=== PATIENT | male | born 2005 | race Caucasian/White ===

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

== ENCOUNTER 2024-03-31 20:17 | Emergency (ER) | payer MEDICAID, SELFPAY ==
--- NOTE | 2024-03-31 | ECG_ITS ---
Test Reason : CHEST PAIN/ANXIETY Blood Pressure : / mmHG Vent. Rate : 059 BPM Atrial Rate : 059 BPM P-R Int : 136 ms QRS Dur : 104 ms QT Int : 420 ms P-R-T Axes : 050 046 030 degrees QTc Int : 415 ms Sinus bradycardia Incomplete right bundle branch block Borderline ECG No previous ECGs available Referred By: Generic ED Physician Electronically Signed By:ARACELI TERRY
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
--- NOTE | ~2024-03-31 | XR_ITS ---
EXAMINATION: XR CHEST CLINICAL INFORMATION: Chest pain, anxiety COMPARISON: None available. TECHNIQUE: Frontal view of the chest was obtained. FINDINGS: No significant abnormality is noted involving the heart, lungs, mediastinum, bony thorax or soft tissues. XR/XR chest 1V IMPRESSION: Unremarkable examination. Electronically signed by: Dandy Taylor DO 03/31/2024 11:05 PM EDT
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
[2024-03-31 20:43] VITALS: BP 127/67; BP 134/76; PULSE 101; PULSE 70; RESP 18; TEMP 36.3; O2SAT 99; BMI 21.0
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
[2024-03-31] MEDS: Acetaminophen 325 MG TABLET 975 MG PO (22:06)
[2024-03-31 23:16] VITALS: BP 127/67; PULSE 70; RESP 18; TEMP 36.3; O2SAT 99
== END 2024-03-31 23:16 | disposition home or self-care (01) ==
PROVIDERS: Emergency Provider Emergency Medicine Emergency Medical Services
DX: S16.1XXA Strain of muscle, fascia and tendon at neck level, initial encounter (principal); S06.0X0A Concussion without loss of consciousness, initial encounter; V43.52XA Car driver injured in collision with other type car in traffic accident, initial encounter; Y93.89 Activity, other specified; Y92.410 Unspecified street and highway as the place of occurrence of the external cause; Y99.9 Unspecified external cause status
CPT/HCPCS: 70450; 71045; 72125; 93005; 99283

== ENCOUNTER 2024-04-10 07:12 | Emergency (ER) | payer OTHER, MEDICAID, SELFPAY ==
[2024-04-10 07:14] VITALS: BP 107/60; PULSE 78; RESP 18; TEMP 36.6; O2SAT 98; BMI 20.3
--- NOTE | 2024-04-10 07:40 | ED.WOUNDLAC ---
HPI - Wound/Laceration General Chief Complaint: Wound/Laceration Stated Complaint: Finger lac Time Seen by Provider: 04/10/24 07:23 Source: patient, RN notes reviewed and old records reviewed Mode of arrival: ambulatory History of Present Illness ED Provider: Sveta Freitas PA-C HPI narrative: 19-year-old male no significant past medical history presenting to the ED complaining of laceration to right 2nd and 3rd digits s/p mopping at work and accidentally hitting hand on metal sifuentes basket. Tetanus up-to-date. Denies injury to other area or suspected foreign body Related Data Previous Rx's ?Medication ?Instructions ?Recorded ibuprofen 400 mg tablet 400 mg PO Q8H PRN pain #20 tabs 06/11/22 cyclobenzaprine 10 mg tablet 10 mg PO BEDTIME PRN muscle spasm 01/28/23 #7 tabs ketorolac 10 mg tablet 10 mg PO TID PRN pain 5 days #15 01/28/23 tabs lidocaine 5 % topical patch 1 patch topical DAILY PRN pain #15 01/28/23 ea ondansetron 4 mg disintegrating 4 mg PO Q8H 3 days #9 tabs 07/12/23 tablet hydrocortisone acetate 25 mg 25 mg [place] BID #12 ea 12/31/23 rectal suppository (Anusol-HC) bacitracin 500 unit/gram topical 1 appl topical BID #30 grams 04/10/24 ointment Allergies Allergy/AdvReac Type Severity Reaction Status Date / Time No Known Allergies Allergy Verified 04/10/24 07:14 Review of Systems Review of Systems: Yes all other systems are reviewed and are negative Constitutional: Constitutional: Reports as per [facility] Past Medical History Attestation statement: The following information was validated with the patient. Source: old records reviewed Social History Social History Advance Directives: No Advance Directives Information Provided: No Physical Exam Vital Signs: Vital Signs: Last Vital Signs Temp 97.8 F 04/10/24 08:15 Pulse 78 04/10/24 08:15 Resp 18 04/10/24 08:15 BP 107/60 04/10/24 08:15 Pulse Ox 98 04/10/24 08:15 O2 Del Method Room Air 04/10/24 08:15 BMI result Body Mass Index 20.3 Const: General: cooperative, healthy appearing and no acute distress Orientation/consciousness: patient oriented x3 Limitations: no limitations HEENT: Head: Yes normal to inspection and Yes atraumatic Ears: hearing grossly normal bilaterally General nose exam: Normal external nose present Face and sinus: Yes normal facial exam Eyes: General: appearance normal, both eyes and all related structures EOM: EOMs intact bilaterally Neck: Neck: Yes normal visual inspection and Yes no meningeal signs Resp: Effort & Inspection: normal respiratory effort and no respiratory distress Cardio: Rate: regular rate Skin: Other: 0.5cm superficial laceration noted to right 3rd MCP 1cm superficial laceration noted to right 2nd MCP Finger to thumb opposition intact. Full range of motion intact to all digits. Underlying structures intact. Bleeding controlled Rashes: no rashes Neuro: General: patient oriented x3, tone normal and no meningeal signs Cranial nerves: Yes CN's II-XII intact bilaterally Gait exam (Neuro): Normal gait present Extrem: General: Yes normal to inspection Course Course Course Narrative: Total of 3 sutures placed Results discussed with patient including worrisome signs and symptoms and strict return precautions, and when to return to the emergency department. They verbalized understanding and feel safe for discharge at this time. Medications Administered Discontinued Medications Generic Name Dose Route Start Last Admin Trade Name Sumaya PRN Reason Stop Dose Admin Lidocaine HCl 1 appl 04/10/24 07:30 04/10/24 08:08 Lidocaine 4 % Cream Kit TOPICAL 04/10/24 07:31 1 appl ONCE ONE Administration Protocol Lidocaine HCl 5 ml 04/10/24 07:30 04/10/24 08:08 Lidocaine Hcl 1 % Mpf 5 Ml Vial EPIDURAL 04/10/24 07:31 5 ml ONCE ONE Administration Medical Decision Making Medical Decision Making [facility] Narrative: 19-year-old male no significant past medical history presenting to the ED complaining of laceration to right 2nd and 3rd digits s/p mopping at work and accidentally hitting hand on metal sifuentes basket. On exam vital signs stable, NAD, physical exam as noted above. Superficial lacerations needing suture repair. Low suspicion for fracture retained foreign body. Plan: Wound repair Please refer to course for remaining clinical decision making, interpretation of labs/imaging results, and discussions with consultants and/or family members. Differential Diagnosis Differential Diagnoses: The differential diagnosis associated with the presentation includes As above External Record Review External record reviewed: Inpatient record, Office record, Outpatient record, Prior outpatient labs, Prior outpatient radiology, Primary care record and Outside ED record Tests considered The following testing was considered but not selected: As above Prescription Management I considered prescription management with: Pain Medication Procedures Laceration Laceration 1: Site: hand Side (If applicable): right Size (cm): 0.5 Description: linear Depth: simple, single layer Local Anesthetic: lidocaine 1% Amount of anesthesia used (mL): 0.3 Pre-repair: wound explored Skin layer closed with: nylon Size (cm): 5-0 Number of sutures: 1 Technique: simple, interrupted Laceration 2: Site: hand Side (If applicable): right Size (cm): 1 Description: linear Depth: simple, single layer Local Anesthetic: lidocaine 1% Amount of anesthesia used (mL): 0.5 Pre-repair: wound explored Skin layer closed with: nylon Size (cm): 5-0 Number of sutures: 2 Technique: simple, interrupted Discharge Plan Discharge Clinical Impression: Laceration Patient Disposition: Home, Self-Care Instructions: Laceration (DC) Additional Instructions: Your wounds were repaired today in the emergency department. Keep dry and clean. You need to return to any emergency department, urgent care, or your PCPs office in 7-10 days for suture removal Apply bacitracin and or Neosporin daily Once sutures are removed apply anti scar cream like Mederma If area begins look infected, is red, there is drainage, streaking, or you have fever please return to the emergency department Prescriptions: New bacitracin 500 unit/gram ointment 1 appl topical BID Qty: 30 0RF No Action ibuprofen 400 mg tablet 400 mg PO Q8H PRN (Reason: pain) Qty: 20 0RF cyclobenzaprine 10 mg tablet 10 mg PO BEDTIME PRN (Reason: muscle spasm) Qty: 7 0RF ketorolac 10 mg tablet 10 mg PO TID PRN (Reason: pain) 5 Days Qty: 15 0RF lidocaine 5 % adhesive patch,medicated 1 patch topical DAILY PRN (Reason: pain) Qty: 15 0RF Rx Instructions: leave on most painful area for up to 12 hrs hydrocortisone acetate [Anusol-HC] 25 mg suppository 25 mg [place] BID Qty: 12 0RF ondansetron 4 mg tablet,disintegrating 4 mg PO Q8H 3 Days Qty: 9 0RF Referrals: Physician,None [Primary Care Provider] - 1 week (7-10 days for suture removal) Stand Alone Forms: Work/School Release Interventions: ED Discharge Assessment Last Done: 04/10/24 08:15 Discharge Date/Time: 04/10/24 08:15 Print Language: Cypriot
[2024-04-10] MEDS: Lidocaine 4 % Cream KIT 1 APPL TOPICAL (08:08)
[2024-04-10] MEDS: Lidocaine HCl 1 % MPF 5 ML VIAL EPIDURAL (08:08)
[2024-04-10 08:15] VITALS: BP 107/60; PULSE 78; RESP 18; TEMP 36.6; O2SAT 98
== END 2024-04-10 08:15 | disposition home or self-care (01) ==
PROVIDERS: Emergency Provider Emergency Medicine
DX: S61.210A Laceration without foreign body of right index finger without damage to nail, initial encounter (principal); S61.212A Laceration without foreign body of right middle finger without damage to nail, initial encounter; W22.8XXA Striking against or struck by other objects, initial encounter; Y93.89 Activity, other specified; Y92.89 Other specified places as the place of occurrence of the external cause; Y99.0 Civilian activity done for income or pay
CPT/HCPCS: 12001; 99282; 99284

== ENCOUNTER 2024-10-04 10:53 | Emergency (ER) | payer OTHER, SELFPAY ==
--- NOTE | 2024-10-04 11:00 | ED.URI ---
HPI - URI/Sore Throat General Chief Complaint: Upper Respiratory Symptoms Stated Complaint: Throat Pain, Coughing Time Seen by Provider: 10/04/24 11:07 Source: patient Mode of arrival: ambulatory Limitations: no limitations History of Present Illness ED Provider: CIRO HSIEH Narrative: 19 yo male otherwise healthy here with c/o dry cough, sore throat for 2 days mild chills. He has no n/v/d. He has no known sick contacts and no travel. It hurts to swallow. MD elicited complaint: cough and sore throat Onset (ago): day(s) (2) Consistency: constant Severity: moderate Description of mucous: clear Able to tolerate fluids by mouth: Yes Exacerbating factors: swallowing Relieving factors: nothing Associated symptoms: chills, sore throat and cough Treatments prior to arrival: none Related Data Previous Rx's ?Medication ?Instructions ?Recorded ibuprofen 400 mg tablet 400 mg PO Q8H PRN pain #20 tabs 06/11/22 cyclobenzaprine 10 mg tablet 10 mg PO BEDTIME PRN muscle spasm 01/28/23 #7 tabs ketorolac 10 mg tablet 10 mg PO TID PRN pain 5 days #15 01/28/23 tabs lidocaine 5 % topical patch 1 patch topical DAILY PRN pain #15 01/28/23 ea ondansetron 4 mg disintegrating 4 mg PO Q8H 3 days #9 tabs 07/12/23 tablet hydrocortisone acetate 25 mg 25 mg [place] BID #12 ea 12/31/23 rectal suppository (Anusol-HC) bacitracin 500 unit/gram topical 1 appl topical BID #30 grams 04/10/24 ointment oseltamivir 75 mg capsule (Tamiflu) 75 mg PO BID 5 days #10 caps 10/04/24 Allergies Allergy/AdvReac Type Severity Reaction Status Date / Time No Known Allergies Allergy Verified 10/04/24 11:03 Review of Systems Review of Systems: Constitutional : No Fever, No Chills, No Fatigue ENT/Mouth : pos sore throat, No Rhinorrhea Eyes: No Eye Pain, No Swelling, No Redness Cardiovascular : No Chest Pain, No SOB, No Dyspnea on Exertion Respiratory : pos Cough, No Sputum Gastrointestinal : No Nausea, No Vomiting, No Diarrhea, No abdominal Pain Genitourinary : No Dysuria, No Urinary Frequency, No Hematuria, Musculoskeletal : No joint pain, No Myalgias, No Joint Swelling Skin : No Skin Lesions, No rash Neuro : No Weakness, No Numbness, No Dizziness, no Headache All other systems reviewed and are negative [facility] Past Medical History Attestation statement: The following information was validated with the patient. Source: old records reviewed Medical History (Updated 10/04/24 @ 12:55 by Teresa Rinaldi DO) No pertinent past medical history Social History Social History (Updated 10/04/24 @ 11:28 by Teresa Rinaldi DO) Patient Tobacco Use Status: Never used Tobacco Do you have a plan to hurt others: No Plan Physical Exam Vital Signs: Vital Signs: Last Vital Signs Temp 98 F 10/04/24 11:02 Pulse 91 10/04/24 11:02 Resp 19 10/04/24 11:02 BP 113/73 10/04/24 11:02 Pulse Ox 99 10/04/24 11:02 O2 Del Method Room Air 10/04/24 11:02 BMI result Body Mass Index 21.0 Appearance: Alert. Oriented X3. No acute distress. Eyes: Pupils equal, round and reactive to light. ENT: Pharynx mild erythema no exudates uvula midline Neck: Normal inspection. Neck supple. CVS: Normal heart rate and rhythm. Pulses normal. Respiratory: No respiratory distress. Breath sounds normal. Abdomen: Soft and nontender. Skin: Skin warm and dry. Normal skin color. Normal skin turgor. Extremities: No lower extremity edema. No calf ttp Neuro: Oriented X 3. No motor deficit. No sensory deficit. 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 Overall well appearing Differential Diagnosis Differential Diagnoses: The differential diagnosis associated with the presentation includes viral syndrome, clear lungs doubt pneumonia, not toxic no signs of BILLING CUST[employer]ER SERVICE REPRESENTATIVE or retropharyngeal abscess Admission/Observation Consideration of admission/observation: Escalation of care including admission/observation considered not toxic stable for DC Lab Data [facility] Lab Attestation statement: I reviewed the patient's lab results. Labs: Lab Results 10/04/24 Range/Units 11:51 Influenza Type A (PCR) POSITIVE A (Negative) Influenza Type B (PCR) NEGATIVE (Negative) RSV RNA Qual (PCR) NEGATIVE (Negative) SARS-CoV-2 RNA (RT-PCR) NEGATIVE (Negative) S. pyogenes GrpA RADHA Negative (Negative) Prescription Management I considered prescription management with: Other Discharge Plan Discharge Clinical Impression: Viral infection, Influenza Patient Disposition: Home, Self-Care Instructions: Influenza (ED), Viral Syndrome (ED) Additional Instructions: negative for strep stay hydrated rest and take tylenol and or motrin for the pain return for worsening symptoms such as chest pain, trouble breathing or any other concerns. Prescriptions: New oseltamivir [Tamiflu] 75 mg capsule 75 mg PO BID 5 Days Qty: 10 0RF No Action ibuprofen 400 mg tablet 400 mg PO Q8H PRN (Reason: pain) Qty: 20 0RF cyclobenzaprine 10 mg tablet 10 mg PO BEDTIME PRN (Reason: muscle spasm) Qty: 7 0RF ketorolac 10 mg tablet 10 mg PO TID PRN (Reason: pain) 5 Days Qty: 15 0RF lidocaine 5 % adhesive patch,medicated 1 patch topical DAILY PRN (Reason: pain) Qty: 15 0RF Rx Instructions: leave on most painful area for up to 12 hrs hydrocortisone acetate [Anusol-HC] 25 mg suppository 25 mg [place] BID Qty: 12 0RF ondansetron 4 mg tablet,disintegrating 4 mg PO Q8H 3 Days Qty: 9 0RF bacitracin 500 unit/gram ointment 1 appl topical BID Qty: 30 0RF Stand Alone Forms: Work/School Release Print Language: Azeri
[2024-10-04 11:02] VITALS: BP 113/73; PULSE 91; RESP 19; TEMP 36.6; O2SAT 99; BMI 21.0
[2024-10-04 12:06] LABS: IDNOW Serial# 58CA691E; Strep A Nucleic Acid Negative (Negative)
[2024-10-04 12:40] LABS: Influenza A PCR POSITIVE (Negative); Influenza B PCR NEGATIVE (Negative); Resp Syncy Virus RNA Qual PCR NEGATIVE (Negative); SARS COV2 PCR INHOUSE NEGATIVE (Negative)
[2024-10-04 12:59] VITALS: BP 113/73; PULSE 91; RESP 19; TEMP 36.6; O2SAT 99
--- OUTSIDE RECORDS SUMMARY | 2024-10-04 16:02 | XMS_ITS | Clinical Summary ---
Author Organization [employer] Address [address] [place] [address] [address] [place] [address] Care Team Providers Care Software Installation Engineer Name Role Phone Kirsten Garcia NP Primary Care Provider [phone] Allergies No known active allergies Medications guanFACINE (Intuniv) 4 mg 24 hr tablet 1 tablet extended release 24 hr by oral route daily at HS Active lisdexamfetamin e (Vyvanse) 50 MG capsule 1 capsule by oral route every morning Active cyclobenzaprine (Flexeril) 10 MG tablet TOME JING TABLETA TODOS LOS D AL ACOSTARSE PARA EL ESPASMO MUSCULAR CUANDO SEA NECESARIO 3 Active ketorolac (Toradol) 10 MG tablet TOME JING TABLETA TASHIA VECES AL D A CUANDO SEA NECESARIO PARA EL DOLOR POR 5 D 3 Active lidocaine (Lidoderm) 5 % patch APPLY 1 PATCH TOPICALLY DAILY NEEDED FOR PAIN LEAVE ON MOST PAINFUL AREA FOR UP TO 12 HRS 3 Active naproxen (Naprosyn) 250 MG tabletIndicatio ns:Acute right-sided low back pain with right-sided sciatica Take 1-2 tab po q 12 hrs prn back pain 60 tablet 3 Active Active Problems Problem Noted Date Diagnosed Date Dyssomnia 11/16/2013 Attention deficit hyperactivity disorder 012 Immunizations Name Administration Dates Next Due DTaP 10/10/2008, 5,2004,07/09 HPV 9-Valent 08/04/2019,06/24/2015 Hep A, ped/adol, 2 dose 06/24/2015,06/24/2010 Hep B, Adolescent or Pediatric 04/04/2005,2004,2004 Hib (HbOC) 09/24/2006,2004,2004 IPV 10/10/2008, 5,2004,07/09 Influenza injectable quadriv alent preservative free 08/04/2019 Influenza live intranasal qu adrivalent LIAV4 06/24/2015 Influenza, IIV3, injectable 06/24/2010, 9 Influenza, Split (incl. nano fied surface antigen) 07/11/2013 Influenza, live, intranasal 05/20/2012 MMR 10/10/2008,06/30/2005 Meningococcal MCV4P [id number] 06/24/2015 Pneumococcal Conjugate PCV 7 10/10/2008, 2004,2004,07/09 Tdap 06/24/2015 Varicella 10/10/2008,06/30/2005 Social History Tobacco Use Types Packs/Day Years Used Date Smoking Tobacco: Never Passive Smoke Exposure: Never Smokeless Tobacco: Never Tobacco Cessation:Counseling Given: Not Answered Alcohol Use Standard Drinks/Week Comments Never 0 (1 standard drink = 0.6 oz pur e alcohol) Sex and Gender Information Value Date Recorded Sex Assigned at Male 06/08/2022 10:20 AM EDT Legal Sex Male 10:20 AM EDT Gender Identity Male 06/08/2022 10:20 AM EDT Sexual Orientation Straight 06/08/2022 10 :20 AM EDT Last Filed Vital Signs Vital Sign Reading Time Taken Comments Blood Pressure 136/68 02/04/2023 10:34 AM EDT Pulse 66 02/04/2023 10:34 AM EDT Temperature 36.5 ??C (97.7 ??F) 02/04/2023 10:34 AM E DT Respiratory Rate 20 02/04/2023 10:34 AM EDT Oxygen Saturation 99% 02/04/2023 10:34 AM EDT Inhaled Oxygen Concentration - - Weight 60.4 kg (133 lb 4 oz) 02/04/2023 10:34 AM EDT Height 166.4 cm (5' 5.5 ) 02/04/2023 10:34 AM ED T Body Mass Index 21.84 02/04/2023 10:34 AM EDT Plan of Treatment Health Maintenance Due Date Last Done Comments Chlamydia and Gonorrhea Screening 2004 Depression Screening 2004 HIV Screening 2004 SDOH Screening 2004 Alcohol/Substance Use Screening 2016 Family Planning (PISQ) 2019 Hepatitis C Screening 2022 Tobacco Screening 02/05/2024 02/04/2023 COVID-19 Vaccine ( season) 2024 Influenza Vaccine (#1) 2024 9, 06/24/2015, 07/11/2013, Additional history exists DTaP/Tdap/Td Vaccines (6 - Td or Tdap) 06/24/2025 06/24/2015, 10/10/2008, 2004, Additional history exists Zoster Vaccines (1 of 2) 2054 RSV Patients and Patients Aged 60 years or older (1 - 1-dose 75+ series) 2079 Hepatitis B Vaccines Completed 04/04/2005, 2004, 2004 HIB Vaccines Completed 09/24/2006, 09/10, 2004 IPV Vaccines Completed 10/10/2008, 11/08, 2004, Additional history exists Pneumococcal Vaccine: Pediatrics (0 to 5 Years) and At-Risk Patients (6 to 49) Years) Aged Out 10/10/2008, 2004, 2004, Additional history exists No longer eligible based on patient's age to complete this topic Hepatitis A Vaccines Completed 06/24/2015, 06/24/20 10 Meningococcal Vaccine Aged Out 06/24/2015 No kalia kimberlyn eligible based on patient's age to complete this topic HPV Vaccines Completed 08/04/2019, 06/24/2015 RSV under 20 months Aged Out No longe r eligible based on patient's age to complete this topic Rotavirus Vaccines Aged Out No longer eligible based on patient's age to complete this topic Insurance [facility] Care Teams Software Installation Engineer Relationship Specialty Start Date End Date Kirsten Garcia NP [address] [place] [id number] PCP - General Family Medicine 02/03/24
== END 2024-10-04 13:09 | disposition home or self-care (01) ==
LOC: HO.ED 13:03
PROVIDERS: Emergency Provider Emergency Medicine
DX: J10.1 Influenza due to other identified influenza virus with other respiratory manifestations (principal); B34.9 Viral infection, unspecified; R05.9 Cough, unspecified; Z03.818 Encounter for observation for suspected exposure to other biological agents ruled out
CPT/HCPCS: 0241U; 87651; 99282; 99283

== ENCOUNTER 2024-12-05 17:09 | Emergency (ER) | payer OTHER, SELFPAY ==
--- NOTE | ~2024-12-05 | CT_ITS ---
CLINICAL HISTORY: trauma CT head without contrast Comparison: CT/SR - CT HEAD/BRAIN WO IV CON - 03/31/24 21:06 EDT Findings: No intra-axial mass, midline shift, hydrocephalus, or acute hemorrhage. No significant atrophy-like change or white matter disease. There is no sinus or mastoid fluid. The orbits are unremarkable. There is no acute fracture. IMPRESSION: 1. No acute intracranial findings. This document has been electronically signed by: Wei Brewer MD on 12/05/2024 20:16:27
[2024-12-05 17:22] VITALS: BP 130/62; PULSE 74; RESP 20; TEMP 36.5; O2SAT 100; BMI 20.7
[2024-12-05 18:29] LABS: MANUAL DIFF FLAG NO
[2024-12-05 18:34] LABS: Basophils Percent Auto 0.4 % (0-2); Eosinophils Percent Auto 0.4 % (0-4); Hematocrit 45.5 % (42.0-52.0); Hemoglobin 15.2 g/dl (14.0-18.0); Imm Gran Abs Auto 0.02 X10*3/uL (0.00-0.03); Imm Gran Pct Auto 0.4 % (0.0-0.4); Lymphocytes Absolute Auto 1.1 X10*3/uL (1.2-4.9); Lymphocytes Percent Auto 20.4 % (20-40); Mean Corpuscular HGB Conc 33.4 g/dl (31.0-36.0); Mean Corpuscular Hemoglobin 30.3 pg (27.0-33.0); Mean Corpuscular Volume 90.8 fL (80.0-98.0); Mean Platelet Volume 9.2 fL (9.4-12.4); Monocytes Absolute Auto 0.4 X10*3/uL (0.1-1.2); Monocytes Percent Auto 7.4 % (2-11); Neutrophils Absolute Auto 3.9 x10*3/uL (2.0-8.3); Platelet Count 182 X10*3/uL (160-400); Red Blood Count 5.01 X10*6/uL (4.60-5.80); Red Cell Distribution Width 12.7 % (11.0-16.0); White Blood Count 5.4 X10*3/uL (4.8-10.8)
[2024-12-05 18:43] LABS: Alanine Aminotransferase 22 U/L (0-40); Albumin Level 4.9 g/dL (3.5-5.0); Alkaline Phosphatase 43 U/L (39-117); Anion Gap 10 (12-20); Aspartate Amino Transferase 24 U/L (5-37); Bilirubin Total 0.7 mg/dL (0.0-1.0); Blood Urea Nitrogen 12 mg/dL (9-16); Calcium 10.1 mg/dL (8.4-10.2); Carbon Dioxide 27 mmol/L (22-29); Chloride 109 mmol/L (96-108); Creatinine Clr Calc Pharmacy 127.8; Estimated Glomerular Filt Rate > 60; Glucose Random 106 mg/dL (60-115); Potassium 4.7 mmol/L (3.3-5.1); Sodium 141 mmol/L (135-145); Total Protein 7.4 g/dL (6.5-8.0)
--- NOTE | 2024-12-05 18:58 | ED.GENADULT ---
HPI - General Adult General Chief complaint: Head Injury Stated complaint: Head inj/Fell at work Time Seen by Provider: 12/05/24 18:03 Source: patient Limitations: no limitations History of Present Illness ED Provider: Rossi Cobb PA-C HPI narrative: 19-year-old male presents with head pain. Patient states he pass out of work yesterday, he struck his head. Patient states he woke up with a headache posterior head. He also is complaining of right eye pain. Associated mild dizziness and nausea that have since subsided. Headache improved as well. He no longer complains of eye pain. Related Data Previous Rx's ?Medication ?Instructions ?Recorded ibuprofen 400 mg tablet 400 mg PO Q8H PRN pain #20 tabs 06/11/22 cyclobenzaprine 10 mg tablet 10 mg PO BEDTIME PRN muscle spasm 01/28/23 #7 tabs ketorolac 10 mg tablet 10 mg PO TID PRN pain 5 days #15 01/28/23 tabs lidocaine 5 % topical patch 1 patch topical DAILY PRN pain #15 01/28/23 ea ondansetron 4 mg disintegrating 4 mg PO Q8H 3 days #9 tabs 07/12/23 tablet hydrocortisone acetate 25 mg 25 mg ID BID #12 ea 12/31/23 rectal suppository (Anusol-HC) bacitracin 500 unit/gram topical 1 appl topical BID #30 grams 04/10/24 ointment oseltamivir 75 mg capsule (Tamiflu) 75 mg PO BID 5 days #10 caps 10/04/24 ondansetron HCl 4 mg tablet 4 mg PO Q8H PRN nausea and 12/05/24 vomiting #10 tabs Allergies Allergy/AdvReac Type Severity Reaction Status Date / Time No Known Allergies Allergy Verified 12/05/24 17:25 Review of Systems Review of Systems: Yes all other systems are reviewed and are negative Constitutional: Constitutional: Denies fatigue, Denies fever(s) and Reports headache(s) Eyes: Eyes: Reports eye pain ENT: Reports headache(s) and Denies neck pain Cardiovascular: Cardiovascular: Denies chest pain and Denies dyspnea Respiratory: Respiratory: Denies cough and Denies dyspnea Gastrointestinal: Gastrointestinal: Denies abdominal pain, Denies diarrhea, Denies nausea and Denies vomiting Musculoskeletal: Musculoskeletal: Denies back pain and Denies neck pain Neurologic: Reports headache(s) Endocrine: Endocrine: Denies fatigue PMF Past Medical History Attestation statement: The following information was validated with the patient. Medical History (Updated 12/05/24 @ 22:37 by MARILYNN Granados) No pertinent past medical history Social History Social History (Updated 10/04/24 @ 11:28 by Teresa Rinaldi DO) Patient Tobacco Use Status: Never used Tobacco Advance Directives: No Advance Directives Information Provided: No Do you have a plan to hurt others: No Plan Physical Exam ED Vital Signs: Vital Signs - 24 hr 12/05/24 17:22 12/05/24 20:31 Temperature 97.7 F 97.6 F Pulse Rate 74 74 Respiratory Rate 20 18 Blood Pressure 130/62 108/59 L Pulse Oximetry 100 98 Oxygen Delivery Method Room Air Room Air BMI result Body Mass Index 20.7 Const Other: Alert Orientation/consciousness: patient oriented x3 Resp Effort & Inspection: normal respiratory effort Cardio Other: Normal peripheral perfusion Skin Other: Warm dry no rash Neuro General: patient oriented x3, gait normal, no focal motor deficits and CN's II-XI intact bilaterally Psych Other: Cooperative Medical Decision Making Medical Decision Making MDM Narrative: 19-year-old male presents with head pain. Patient states he pass out of work yesterday, he struck his head. Patient states he woke up with a headache posterior head. He also is complaining of right eye pain. Associated mild dizziness and nausea that have since subsided. Headache improved as well. He no longer complains of eye pain. Problem: Head strike History: Per patient I have considered the following differential diagnoses: Contusion, concussion, intracranial hemorrhage Plan: Screening labs and CT of the brain obtained, no acute findings, given the patient's symptoms he likely has a mild concussion, to note his symptoms are also improving. We will send with home care instructions. I have independently reviewed the following tests: Labs: No leukocytosis, not anemic, no electrolyte abnormality noted CT brain:IMPRESSION: 1. No acute intracranial findings. Lab Data 12/05/24 18:26 12/05/24 18:26 Labs: Lab Results 12/05/24 Range/Units 18:26 WBC 5.4 (4.8-10.8) X10*3/uL RBC 5.01 (4.60-5.80) X10*6/uL Hgb 15.2 (14.0-18.0) g/dl Hct 45.5 (42.0-52.0) % MCV 90.8 (80.0-98.0) fL MCH 30.3 (27.0-33.0) pg MCHC 33.4 (31.0-36.0) g/dl RDW 12.7 (11.0-16.0) % Plt Count 182 (160-400) X10*3/uL MPV 9.2 L (9.4-12.4) fL Immature Gran % (Auto) 0.4 (0.0-0.4) % Neut % (Auto) 71.0 (45-73) % Lymph % (Auto) 20.4 (20-40) % [place] % (Auto) 7.4 (2-11) % Eos % (Auto) 0.4 (0-4) % Baso % (Auto) 0.4 (0-2) % Lymph # (Auto) 1.1 L (1.2-4.9) X10*3/uL [place] # (Auto) 0.4 (0.1-1.2) X10*3/uL Eos # (Auto) 0.0 (0.0-0.4) X10*3/uL Baso # (Auto) 0.0 (0.0-0.2) X10*3/uL Abs Immat Gran (auto) 0.02 (0.00-0.03) X10*3/uL Absolute Neuts (auto) 3.9 (2.0-8.3) x10*3/uL Absolute Nucleated RBC 0.000 (0.0-0.012) X10*3/uL Nucleated RBC % (auto) 0.0 (0.0-0.2) /100WBC Sodium 141 (135-145) mmol/L Potassium 4.7 (3.3-5.1) mmol/L Chloride 109 H (96-108) mmol/L Carbon Dioxide 27 (22-29) mmol/L Anion Gap 10 L (12-20) BUN 12 (9-16) mg/dL Creatinine 0.76 (0.5-1.4) mg/dL Estim Creat Clear Calc 127.8 Estimated GFR > 60 Random Glucose 106 (60-115) mg/dL Calcium 10.1 (8.4-10.2) mg/dL Magnesium 2.0 (1.6-2.6) mg/dL Total Bilirubin 0.7 (0.0-1.0) mg/dL AST 24 (5-37) U/L ALT 22 (0-40) U/L Alkaline Phosphatase 43 (39-117) U/L Total Protein 7.4 (6.5-8.0) g/dL Albumin 4.9 (3.5-5.0) g/dL Discharge Plan Discharge Clinical Impression: Closed head injury Patient Disposition: Home, Self-Care Instructions: Concussion in Children (ED) Additional Instructions: All of your screening labs were normal, the CT scan of your brain was negative. See home care instructions. Uses Zofran as needed for nausea. You can use [id number] Tylenol 1000 mg taken every 8 hours, alternated with [id number] ibuprofen 600 mg taken every 6 hours with food, for your headaches. Follow up with primary care as needed. Prescriptions: New ondansetron HCl 4 mg tablet 4 mg PO Q8H PRN (Reason: nausea and vomiting) Qty: 10 0RF No Action ibuprofen 400 mg tablet 400 mg PO Q8H PRN (Reason: pain) Qty: 20 0RF cyclobenzaprine 10 mg tablet 10 mg PO BEDTIME PRN (Reason: muscle spasm) Qty: 7 0RF ketorolac 10 mg tablet 10 mg PO TID PRN (Reason: pain) 5 Days Qty: 15 0RF lidocaine 5 % adhesive patch,medicated 1 patch topical DAILY PRN (Reason: pain) Qty: 15 0RF Rx Instructions: leave on most painful area for up to 12 hrs hydrocortisone acetate [Anusol-HC] 25 mg suppository 25 mg ID BID Qty: 12 0RF ondansetron 4 mg tablet,disintegrating 4 mg PO Q8H 3 Days Qty: 9 0RF bacitracin 500 unit/gram ointment 1 appl topical BID Qty: 30 0RF oseltamivir [Tamiflu] 75 mg capsule 75 mg PO BID 5 Days Qty: 10 0RF Stand Alone Forms: Work/School Release Print Language: Swedish
[2024-12-05 20:31] VITALS: BP 108/59; PULSE 74; RESP 18; TEMP 36.4; O2SAT 98
[2024-12-05 22:48] VITALS: BP 108/59; PULSE 74; RESP 18; TEMP 36.4; O2SAT 98
== END 2024-12-05 22:48 | disposition home or self-care (01) ==
PROVIDERS: Physician Assistant Medical; Emergency Provider Emergency Medicine Emergency Medical Services
DX: S09.90XA Unspecified injury of head, initial encounter (principal); W18.30XA Fall on same level, unspecified, initial encounter; Y93.89 Activity, other specified; Y92.89 Other specified places as the place of occurrence of the external cause; Y99.0 Civilian activity done for income or pay; R51.9 Headache, unspecified
CPT/HCPCS: 36415; 70450; 80053; 83735; 85025; 99284

== ENCOUNTER → 2024-12-05 18:03 | Outpatient (BNV) | payer OTHER, SELFPAY | PROVIDERS: Emergency Provider Emergency Medicine Emergency Medical Services; Visit Provider Radiology Diagnostic Radiology | DX: R51.9 Headache, unspecified (principal); S09.90XA Unspecified injury of head, initial encounter; W19.XXXA Unspecified fall, initial encounter; Z04.2 Encounter for examination and observation following work accident | CPT/HCPCS: 70450 ==